=== PATIENT | male | born 1990 | race Caucasian/White ===

== ENCOUNTER 2022-03-05 02:02 | Emergency (ER) | payer MEDICAID, SELFPAY ==
--- NOTE | ~2022-03-05 | CT_ITS ---
EXAMINATION: NONCONTRAST HEAD CT NONCONTRAST FACIAL BONES CT NONCONTRAST CERVICAL SPINE CT INDICATION INFORMATION: Fall COMPARISON: 07/13/2018 TECHNIQUE: Separate noncontrast CT examinations of the head, maxillofacial bones, and cervical spine were performed. Coronal and sagittal images were created for each examination at the technologist workstation. DOSE LOWERING TECHNIQUES: This CT examination was performed using dose optimization techniques as appropriate, variously including the following: - Automated exposure control - Adjustment of mA and/or kV according to patient size (this includes techniques or standardized protocols for targeted exams were dose is matched to indication/reason for exam; i.e. extremities or head) - Use of iterative reconstruction technique DLP: 2007 mGy-cm FINDINGS: Head: There is no evidence of acute intracranial hemorrhage or territorial infarction. No abnormal mass-effect or midline shift is seen. Chi to white matter differentiation is well preserved. No extra-axial fluid collections are identified. The ventricles are normal in size. There is no abnormal attenuation within the brain parenchyma. The osseous structures and soft tissues are normal. The mastoid air cells are well aerated. Maxillofacial: No acute maxillofacial fractures are seen. The frontal, maxillary, ethmoid, and sphenoid sinuses are well aerated. The uncinate process appears normal bilaterally. There is some mucosal thickening along the right infundibulum. There is rightward deviation of the nasal septum. The mandibular condyles are well-seated in the condylar fossa. The orbits demonstrate a normal appearance bilaterally. The globes are intact, and there are no suspicious findings to suggest retrobulbar hemorrhage. Cervical spine: There is anatomic alignment of the vertebral bodies and posterior elements. Vertebral body heights are maintained. Intervertebral disc spaces are preserved. No evidence of acute fracture. No prevertebral soft tissue swelling. Lung apices are not adequately assessed. Visualized portion of the thyroid gland is grossly unremarkable. CT/CT cervical spine wo IV con IMPRESSION: No acute traumatic findings identified in the head, facial bones, or cervical spine.
--- NOTE | 2022-03-05 02:16 | ED.OVERDOSE ---
HPI - Overdose General Chief Complaint: Overdose Stated Complaint: OD Time Seen by Provider: 03/05/22 02:16 Source: patient and EMS Mode of arrival: EMS Limitations: altered mental status History of Present Illness complaint: accidental overdose Onset (ago): minute(s) (just prior to arrival ) Timing confirmed by: other (friend) Context: Accidental Overdose: wanted to get high Associated symptoms: other (per EMS patient used then overdosed and fell forward friends on scene) Treatments Prior to Arrival: narcan (total 6mg in narcan) Related Data Allergies Allergy/AdvReac Type Severity Reaction Status Date / Time No Known Allergies Allergy Unverified 03/12/20 17:08 [No Known Allergies*] Unable to Assess Allergy Unverified 03/12/20 17:08 Review of Systems Review of Systems: ROS unable to be obtained due to altered mental status PMFSH Past Medical History Attestation statement: The following information was validated with the patient. Medical History Opiate abuse, continuous Social History Social History (Updated 03/05/22 @ 02:40 by Azra Bowers DO) Patient Tobacco Use Status: Tobacco use Unknown Substance Use Type: Heroin Advance Directives: No Advance Directives Information Provided: No Advance Directives on File: No Physical Exam Vital Signs: Vital Signs: BMI result Body Mass Index 28.5 Appearance: awakes to voice. Oriented X person and place mild acute distress. Eyes: Pupils pinpoint ENT: Pharynx normal. bruising to tip of nose Neck: Normal inspection. Neck supple. CVS: Normal heart rate and rhythm. Pulses normal. Respiratory: No respiratory distress. Breath sounds normal. Abdomen: Soft and non-tender. Skin: Skin warm and dry. Normal skin color. Normal skin turgor. Extremities: No lower extremity edema. No calf ttp Neuro: Oriented X 2No motor deficit. No sensory deficit. Course Course Course Narrative: 89% on 2L NC, sleepy - given another 4m IN narcan sats up to 97% Patient placed in physician observation at 355am. The indication for observation is that the patient needs more time to improve clinically from overdose, he easily wakes to voice now but is still sedated. will offer SUDE eval once more awake but initially declined MAT therapy and detox At this time the patient is well developed well nourished, lungs clear, CV RRR, abd nontender, neuro is nonfocal. MDM - Overdose MDM Narrative Medical decision making narrative: 31 yo male accidental opiate overdose with fall and head strike will place on monitor and end tidal - CT head/cspine/facial bones ordered. Will need close observation for further reversal. Dispo per results and findings. Lab Data Labs: Lab Results 03/05/22 Range/Units 02:40 COVID-19 ([facility]) Negative (Negative) COVID-19 Clin Com See Note Discharge Plan Discharge Clinical Impression: Drug overdose Qualifiers: Encounter type: initial encounter Injury intent: accidental or unintentional Qualified Code(s): T50.901A - Poisoning by unspecified drugs, medicaments and biological substances, accidental (unintentional), initial encounter Patient Disposition: Still a Patient
[2022-03-05 02:24] VITALS: BP 118/68; PULSE 104; O2SAT 98; BMI 28.5
--- NOTE | 2022-03-05 02:34 | PC.NURSE ---
Upon arrival pt placed in ED bed 13H while awaiting room availability. The pt was noted to have snoring respirations, unarousable to verbal stimuli requiring light physical stimuli to prompt a response. Pt noted to not be fully alert at any time since arrival, pt's O2 sat noted to be low to mid 90s on room air. Pt relocated to ED bed 11 to allow for capnography and closer vital monitoring. Pt's capnography noted to be 40-45, O2 sat on room air as low as 88% with NC applied at 4LPM (per MD Bowers). Pt medicated by MD Bowers with nasal narcan due to pt's current mental status/decrased alertness; no change noted in the pt's presentation/alertness s/p nasal narcan admin by . RN will continue to monitor.
[2022-03-05 03:01] LABS: COVID-19 Test Negative (Negative)
[2022-03-05 05:43] VITALS: BP 95/33; PULSE 90; RESP 26; O2SAT 90
[2022-03-05 05:57] VITALS: BP 97/42; PULSE 87; RESP 16; TEMP 36.4; O2SAT 93
[2022-03-05 10:51] VITALS: BP 98/54; PULSE 79; RESP 16; O2SAT 92
--- NOTE | 2022-03-05 11:18 | PC.NURSE ---
pt refused naloxone. he signed discharge papers then threw the packet in the trash. this rn told him that I will put the packet in the shred box, pt stated I don't care . pt left without discharge papers.
== END 2022-03-05 11:00 | disposition home or self-care (01) ==
PROVIDERS: Emergency Provider Emergency Medicine
DX: T40.1X1A Poisoning by heroin, accidental (unintentional), initial encounter (principal); R40.0 Somnolence; S00.33XA Contusion of nose, initial encounter; W17.89XA Other fall from one level to another, initial encounter; F11.10 Opioid abuse, uncomplicated; Z20.822 Contact with and (suspected) exposure to COVID-19; Y93.89 Activity, other specified; Y92.9 Unspecified place or not applicable; Y99.9 Unspecified external cause status
CPT/HCPCS: 70450; 70486; 72125; 87635; 99283; 99284